=== PATIENT | female | born 1945 | race Caucasian/White ===

== ENCOUNTER 2024-02-23 12:49 | Outpatient (CLI) | payer MEDICARE ==
[2024-02-23 14:19] LABS: #Basophils 0.03 10x3/uL (0.0-0.2); #Monocytes 0.64 10x3/uL (0.0-1.1); #Neutrophils 6.63 10x3/uL (1.5-8.4); %Basophils 0.3 % (0.0-2.0); %Eosinophils 1.1 % (0.0-6.0); %Monocytes 7.2 % (0.0-10.0); %Neutrophils 74.1 % (40.0-75.0); Hematocrit 42.9 % (34.9-44.5); Hemoglobin 14.7 g/dL (12.0-15.5); Mean Corpuscular HGB CONC 34.3 g/dL (32.0-36.0); Mean Corpuscular Hemoglobin 32.8 pg (27.0-33.0); Mean Corpuscular Volume 95.8 fL (81.6-98.3); Mean Platelet Volume 10.7 fL (7.4-10.4); Platelet Count 198 10x3/uL (150-450); RBC Distribution Width 13.1 % (11.5-14.5); Red Blood Cell (RBC) Count 4.48 10x6/uL (3.90-5.03)
[2024-02-23 14:32] LABS: Anion Gap 13 mmol/L (10-20); BUN (Urea Nitrogen) 21 mg/dL (9.8-20.1); Calc. Creatinine Clearance 0 mL/min (70-130); Calcium 9.8 mg/dL (7.8-10.44); Carbon Dioxide 26 mmol/L (23-31); Chloride 108 mmol/L (98-107); Estimated GFR 55; Glucose 95 mg/dL (83-110); Potassium 4.4 mmol/L (3.5-5.1); Sodium 143 mmol/L (136-145)
== END 2024-02-23 12:50 | disposition home or self-care (01) ==
LOC: LABBT 12:49
PROVIDERS: ATTEND Orthopaedic Surgery
DX: Z01.818 Encounter for other preprocedural examination (principal); M16.11 Unilateral primary osteoarthritis, right hip
CPT/HCPCS: 80048; 85025; 85610; 87081; 93005; 93010

== ENCOUNTER 2024-02-28 08:42 | Inpatient (IN) | payer MEDICARE ==
[2024-02-28] MEDS ORDERED: Tranexamic Acid 1,000 MG/10 ML VIAL ONE (10:17)
[2024-02-28] MEDS ORDERED: Vancomycin 1 GM/200 ML (FROZEN) BAG ONE (10:18)
[2024-02-28] MEDS ORDERED: Sodium Chloride 0.9% 100 ML ONE ×2 (10:18→12:26)
[2024-02-28] MEDS ORDERED: Lidocaine 1% MPF 2 ML VIAL ONE (10:42)
[2024-02-28] MEDS ORDERED: fentaNYL 50 mcg/mL 1 mL Vial ONE ×4 (11:01→15:22)
[2024-02-28] MEDS ORDERED: diphenhydrAMINE 50 MG/ML VIAL IM PRN (12:00)
[2024-02-28] MEDS ORDERED: diphenhydrAMINE 25 MG CAP PO PRN ×2 (12:00→15:00)
[2024-02-28] MEDS ORDERED: Bupivacaine 0.25% 10 ML VIAL EPIDURAL PRN (12:00)
[2024-02-28] MEDS ORDERED: Naloxone HCl 0.4 mg/ml Vial IV PRN (12:00)
[2024-02-28] MEDS ORDERED: Ondansetron PF 4 MG/2 ML Vial IVP PRN ×2 (12:00→15:00)
[2024-02-28] MEDS ORDERED: Promethazine HCl 25 MG/ML VIAL IM PRN ×2 (12:00→15:00)
[2024-02-28] MEDS ORDERED: diphenhydrAMINE 50 MG/ML VIAL IVP PRN (12:00)
[2024-02-28] MEDS ORDERED: Moisturizing Cream (Eucerin) 113 GM JAR TOP PRN (12:00)
[2024-02-28] MEDS ORDERED: traMADol HCl 50 MG TAB PO PRN (12:00)
[2024-02-28] MEDS ORDERED: Promethazine HCl 25 MG SUPP PR PRN (12:00)
[2024-02-28] MEDS ORDERED: Naloxone HCl 0.4 mg/ml Vial IVP PRN (12:00)
[2024-02-28] MEDS ORDERED: Zolpidem Tartrate 5 MG TAB PO PRN ×2 (12:00→15:00)
[2024-02-28] MEDS ORDERED: PROPOFOL 20 ML ONE (12:25)
[2024-02-28] MEDS ORDERED: SUGAMMADEX SODIUM 200 MG/2 ML VIAL ONE (12:25)
[2024-02-28] MEDS ORDERED: CEFAZOLIN 2 GM VIAL ONE (12:26)
[2024-02-28] MEDS ORDERED: Rocuronium Bromide 10 MG/ML (10ML VIAL) ONE (12:43)
[2024-02-28] MEDS ORDERED: PHENYLEPHRINE-NS 100 MCG/ML 10 ML SYRINGE ONE (12:55)
[2024-02-28] MEDS ORDERED: Lidocaine 1% PF 5 ML VIAL ONE ×2 (12:59→14:42)
[2024-02-28] MEDS ORDERED: Acetaminophen 325 MG TAB PO PRN (15:00)
[2024-02-28] MEDS ORDERED: Bupivacaine 0.25% HCL 30 ML VIAL ONE (15:43)
[2024-02-28] MEDS: HYDROcodone/Acetaminophen 5/325 mg Tablet PO PRN (19:21)
[2024-02-28] MEDS: Aspirin 81 mg Enteric Coated Tablet PO SCH (21:25)
[2024-02-28] MEDS: CEFAZOLIN 2 GM in Sodium Chloride 0.9% 100 ML IVPB SCH (21:25)
[2024-02-28] MEDS: Ferrous Gluconate 324 MG TAB PO SCH (21:25)
[2024-02-28] MEDS: Senokot S 8.6-50 MG TAB PO SCH (21:25)
[2024-02-29] MEDS: FENTANYL 500 MCG/10 ML VIAL 500 MCG, Bupivacaine 0.75% 10 ML in Sodium Chloride 0.9% 80 ML EPIDURAL SCH (05:19)
[2024-02-29 06:15] LABS: Hematocrit 37.2 % (36.0-47.0); Hemoglobin 12.3 g/dL (12.0-16.0); Mean Corpuscular HGB CONC 33.1 g/dL (32.0-36.0); Mean Corpuscular Hemoglobin 31.9 pg (27.0-31.0); Mean Corpuscular Volume 96.4 fL (78.0-98.0); Mean Platelet Volume 10.8 fL (7.4-10.4); Platelet Count 152 10x3/uL (130-400); RBC Distribution Width 13.3 % (11.5-14.5); Red Blood Cell (RBC) Count 3.86 mill/uL (4.20-5.40)
[2024-02-29] MEDS: Multivitamin W/ Minerals 1 TAB PO SCH (07:51)
[2024-02-29] MEDS: HYDROcodone/Acetaminophen 5/325 mg Tablet PO PRN (09:39)
[2024-02-29] MEDS: traMADol HCl 50 MG TAB PO PRN (11:56)
[2024-02-29] MEDS: HYDROcodone/Acetaminophen 7.5/325 mg Tablet PO PRN (14:45)
[2024-03-01 07:02] LABS: Hematocrit 39.8 % (36.0-47.0); Mean Corpuscular HGB CONC 32.7 g/dL (32.0-36.0); Mean Corpuscular Hemoglobin 31.6 pg (27.0-31.0); Mean Corpuscular Volume 96.6 fL (78.0-98.0); Mean Platelet Volume 10.5 fL (7.4-10.4); Platelet Count 140 10x3/uL (130-400); RBC Distribution Width 13.4 % (11.5-14.5); Red Blood Cell (RBC) Count 4.12 mill/uL (4.20-5.40)
[2024-03-01] MEDS: HYDROcodone/Acetaminophen 7.5/325 mg Tablet PO PRN (09:45)
[2024-03-01 21:12] VITALS: BMI 341300.7
[2024-03-02 07:59] LABS: Hemoglobin 11.7 g/dL (12.0-16.0); Mean Corpuscular HGB CONC 32.5 g/dL (32.0-36.0); Mean Corpuscular Hemoglobin 32.3 pg (27.0-31.0); Mean Corpuscular Volume 99.4 fL (78.0-98.0); Mean Platelet Volume 11.2 fL (7.4-10.4); Platelet Count 119 10x3/uL (130-400); RBC Distribution Width 13.3 % (11.5-14.5); Red Blood Cell (RBC) Count 3.62 mill/uL (4.20-5.40)
[2024-03-03 06:17] LABS: Hematocrit 33.6 % (36.0-47.0); Mean Corpuscular HGB CONC 32.7 g/dL (32.0-36.0); Mean Corpuscular Hemoglobin 32.1 pg (27.0-31.0); Mean Platelet Volume 10.2 fL (7.4-10.4); Platelet Count 151 10x3/uL (130-400); RBC Distribution Width 13.4 % (11.5-14.5); Red Blood Cell (RBC) Count 3.43 mill/uL (4.20-5.40)
[2024-03-05] MEDS: methylPREDNISolone Sod Succ/PF 125 MG/2 ML VIAL IVP SCH (09:20)
[2024-03-05] MEDS ORDERED: Loperamide HCl 2 MG CAP PO PRN (11:07)
[2024-03-05] MEDS: Loperamide HCl 2 MG CAP PO SCH (11:11)
[2024-03-05 11:57] VITALS: BP 153/84; TEMP 98.3
== END 2024-03-05 11:42 | disposition home or self-care (01) | DRG 470 ==
LOC: SDC 08:42 → SURG B 17:20 → OBSVTOIN 03-01 18:12
PROVIDERS: ADMIT Orthopaedic Surgery; ATTEND Orthopaedic Surgery
PROC: 0SR90JZ Replacement of Right Hip Joint with Synthetic Substitute, Open Approach (ICD-10-PCS; principal; 2024-02-28)
DX: M16.11 Unilateral primary osteoarthritis, right hip (principal); J44.9 Chronic obstructive pulmonary disease, unspecified; E78.5 Hyperlipidemia, unspecified; I10 Essential (primary) hypertension; M81.0 Age-related osteoporosis without current pathological fracture; K21.9 Gastro-esophageal reflux disease without esophagitis; Z96.653 Presence of artificial knee joint, bilateral; Z90.710 Acquired absence of both cervix and uterus; Z79.899 Other long term (current) drug therapy; Z88.1 Allergy status to other antibiotic agents; Z88.6 Allergy status to analgesic agent; Z90.49 Acquired absence of other specified parts of digestive tract; Z88.8 Allergy status to other drugs, medicaments and biological substances
CPT/HCPCS: 36415; 72170; 85027; 96365; 96375; 96376; C1713; C1776; G0378; G0379; J0665; J2704; J2930; J3010; J3370-JW; J3490

== ENCOUNTER 2025-04-06 12:28 | Inpatient (IN) | payer MEDICARE, OTHER ==
[~2025-04-06 12:28] MED LIST: Iopamidol 370 76% 100 ML VIAL ONE
[2025-04-06] MEDS ORDERED: Albuterol 2.5 MG (3 mL) NEB ONE (12:58)
[2025-04-06 13:04] LABS: #Basophils 0.06 10x3/uL (0.0-0.2); #Eosinophils 0.51 10x3/uL (0.0-0.7); #Monocytes 0.65 10x3/uL (0.11-0.59); #Neutrophils 6.43 10x3/uL (1.40-6.50); %Basophils 0.6 % (0.0-1.0); %Eosinophils 5.5 % (0.0-10.0); %Lymphocytes 17.0 % (21.0-51.0); %Monocytes 7.0 % (0.0-10.0); %Neutrophils 69.5 % (42.0-75.0); Hematocrit 44.3 % (36.0-47.0); Hemoglobin 14.2 g/dL (12.0-16.0); Mean Corpuscular Hemoglobin 31.3 pg (27.0-31.0); Mean Corpuscular Volume 97.6 fL (78.0-98.0); Platelet Count 176 10x3/uL (130-400); Red Blood Cell (RBC) Count 4.54 mill/uL (4.20-5.40); White Blood Cell (WBC) Count 9.26 10x3/uL (4.8-10.8)
[2025-04-06 13:09] LABS: Actual Bicarbonate (HCO3v) 29.5 mEq/L (22-28); Base Excess 1.0 mEq/L (-2.0 to +3.0); Calcium, Ionized (venous) 1.17 mmol/L (1.16-1.32); Chloride (VBG) 104 mmol/L (98-106); Hematocrit-VBG 45 % (36.0-47.0); Hemoglobin (Hb) 15.2 g/dL (11.7-16.1); Potassium (VBG) 4.26 mmol/L (3.70-5.30); Sodium 143 mmol/L (133-146)
[2025-04-06] MEDS ORDERED: Albuterol 2.5 MG (0.5 mL) NEB ONE (13:09)
[2025-04-06 13:34] LABS: ALT (SGPT) 26 U/L (Less than 34); AST (SGOT) 31 U/L (11-34); Albumin 4.3 g/dL (3.1-4.5); Alkaline Phosphatase 99 U/L (40-110); Anion Gap 13 mmol/L (10-20); BUN (Urea Nitrogen) 14 mg/dL (9.8-20.1); Bilirubin, Total 0.6 mg/dL (0.3-1.2); Calc. Creatinine Clearance 0 mL/min (70-130); Calcium 9.2 mg/dL (7.8-10.44); Carbon Dioxide 28 mmol/L (23-31); Chloride 106 mmol/L (98-107); Globulin 2.4 g/dL (2.4-3.5); Glucose 99 mg/dL (83-110); Potassium 4.2 mmol/L (3.5-5.1); Sodium 143 mmol/L (136-145)
[2025-04-06] MEDS: Enoxaparin 40 MG (0.4 mL) SYRINGE SC SCH (17:06)
[2025-04-06] MEDS: Azithromycin 250 MG TAB PO SCH (17:06)
[2025-04-06 18:36] LABS: Influenza A by NAA Not Detected (NotDetected); Influenza B by NAA Not Detected (NotDetected); SARS-CoV-2 NAA Rapid Test Not Detected (NotDetected)
[2025-04-06] MEDS ORDERED: Albuterol 200 PUFF (6.7GM INHALER) INH PRN (23:08)
[2025-04-06] MEDS ORDERED: Albuterol 200 PUFF INH INH PRN (23:27)
[2025-04-06] MEDS: Benzonatate 100 MG CAP PO PRN (23:53)
[2025-04-07 04:45] LABS: #Basophils Less than 0.03 10x3/uL (0.0-0.2); #Eosinophils Less than 0.03 10x3/uL (0.0-0.7); #Monocytes 0.14 10x3/uL (0.11-0.59); #Neutrophils 8.96 10x3/uL (1.40-6.50); %Basophils 0.1 % (0.0-1.0); %Eosinophils 0.0 % (0.0-10.0); %Lymphocytes 7.3 % (21.0-51.0); %Monocytes 1.4 % (0.0-10.0); %Neutrophils 90.6 % (42.0-75.0); Hematocrit 39.7 % (36.0-47.0); Hemoglobin 12.8 g/dL (12.0-16.0); Mean Corpuscular Hemoglobin 31.0 pg (27.0-31.0); Mean Corpuscular Volume 96.1 fL (78.0-98.0); Platelet Count 163 10x3/uL (130-400); Red Blood Cell (RBC) Count 4.13 mill/uL (4.20-5.40); White Blood Cell (WBC) Count 9.89 10x3/uL (4.8-10.8)
[2025-04-07 05:16] LABS: ALT (SGPT) 20 U/L (Less than 34); AST (SGOT) 18 U/L (11-34); Albumin 3.5 g/dL (3.1-4.5); Alkaline Phosphatase 63 U/L (40-110); Anion Gap 15 mmol/L (10-20); BUN (Urea Nitrogen) 21 mg/dL (9.8-20.1); Bilirubin, Total 0.6 mg/dL (0.3-1.2); Calc. Creatinine Clearance 58 mL/min (70-130); Calcium 8.9 mg/dL (7.8-10.44); Carbon Dioxide 22 mmol/L (23-31); Chloride 108 mmol/L (98-107); Globulin 2.3 g/dL (2.4-3.5); Glucose 155 mg/dL (83-110); Potassium 4.2 mmol/L (3.5-5.1); Sodium 141 mmol/L (136-145)
[2025-04-07] MEDS: Atenolol 50 MG TAB PO SCH (09:21)
[2025-04-07] MEDS: Enoxaparin 40 MG (0.4 mL) SYRINGE SC SCH (09:21)
[2025-04-07] MEDS: Azithromycin 250 MG TAB PO SCH (09:21)
[2025-04-07] MEDS: Pantoprazole 40 MG DR.TAB PO SCH (09:21)
[2025-04-07] MEDS: predniSONE 20 MG TAB PO SCH (09:22)
[2025-04-07] MEDS: Guaifenesin DM 100-10/5 ML UDCUP PO PRN (16:59)
[2025-04-08] MEDS: Benzocaine/Menthol 1 LOZ LOZ PO PRN (03:33)
[2025-04-08] MEDS: Famotidine/PF 20 mg/2ml Vial SLOW IVP SCH (05:59)
[2025-04-08] MEDS: Famotidine 40 MG (4 mL) VIAL SLOW IVP SCH (05:59)
[2025-04-08] MEDS ORDERED: hydrALAZINE 20 MG/ML VIAL SLOW IVP PRN (09:01)
[2025-04-08 09:11] LABS: #Basophils 0.03 10x3/uL (0.0-0.2); #Eosinophils Less than 0.03 10x3/uL (0.0-0.7); #Monocytes 1.43 10x3/uL (0.11-0.59); #Neutrophils 19.70 10x3/uL (1.40-6.50); %Basophils 0.1 % (0.0-1.0); %Eosinophils 0.0 % (0.0-10.0); %Lymphocytes 5.3 % (21.0-51.0); %Monocytes 6.4 % (0.0-10.0); %Neutrophils 87.7 % (42.0-75.0); Hematocrit 44.3 % (36.0-47.0); Hemoglobin 14.0 g/dL (12.0-16.0); Mean Corpuscular Hemoglobin 30.9 pg (27.0-31.0); Mean Corpuscular Volume 97.8 fL (78.0-98.0); Platelet Count 183 10x3/uL (130-400); Red Blood Cell (RBC) Count 4.53 mill/uL (4.20-5.40); White Blood Cell (WBC) Count 22.47 10x3/uL (4.8-10.8)
[2025-04-08 09:33] LABS: ALT (SGPT) 22 U/L (Less than 34); AST (SGOT) 31 U/L (11-34); Albumin 3.7 g/dL (3.1-4.5); Alkaline Phosphatase 67 U/L (40-110); Anion Gap 16 mmol/L (10-20); BUN (Urea Nitrogen) 30 mg/dL (9.8-20.1); Bilirubin, Total 0.7 mg/dL (0.3-1.2); Calc. Creatinine Clearance 55 mL/min (70-130); Calcium 9.5 mg/dL (7.8-10.44); Carbon Dioxide 25 mmol/L (23-31); Chloride 107 mmol/L (98-107); Globulin 2.4 g/dL (2.4-3.5); Glucose 129 mg/dL (83-110); Potassium 4.2 mmol/L (3.5-5.1); Sodium 144 mmol/L (136-145)
[2025-04-09 05:31] LABS: #Basophils Less than 0.03 10x3/uL (0.0-0.2); #Eosinophils Less than 0.03 10x3/uL (0.0-0.7); #Monocytes 1.32 10x3/uL (0.11-0.59); #Neutrophils 12.94 10x3/uL (1.40-6.50); %Basophils 0.1 % (0.0-1.0); %Eosinophils 0.1 % (0.0-10.0); %Lymphocytes 8.2 % (21.0-51.0); %Monocytes 8.5 % (0.0-10.0); %Neutrophils 82.7 % (42.0-75.0); Hematocrit 42.0 % (36.0-47.0); Hemoglobin 13.2 g/dL (12.0-16.0); Mean Corpuscular Hemoglobin 30.5 pg (27.0-31.0); Mean Corpuscular Volume 97.0 fL (78.0-98.0); Platelet Count 168 10x3/uL (130-400); Red Blood Cell (RBC) Count 4.33 mill/uL (4.20-5.40); White Blood Cell (WBC) Count 15.62 10x3/uL (4.8-10.8)
[2025-04-09 06:10] LABS: ALT (SGPT) 20 U/L (Less than 34); AST (SGOT) 28 U/L (11-34); Albumin 3.5 g/dL (3.1-4.5); Alkaline Phosphatase 60 U/L (40-110); Anion Gap 13 mmol/L (10-20); BUN (Urea Nitrogen) 27 mg/dL (9.8-20.1); Bilirubin, Total 0.7 mg/dL (0.3-1.2); Calc. Creatinine Clearance 57 mL/min (70-130); Calcium 8.7 mg/dL (7.8-10.44); Carbon Dioxide 26 mmol/L (23-31); Chloride 108 mmol/L (98-107); Globulin 2.2 g/dL (2.4-3.5); Glucose 96 mg/dL (83-110); Potassium 4.4 mmol/L (3.5-5.1); Sodium 143 mmol/L (136-145)
[2025-04-09] MEDS: Mometasone 200 MCG/Formoterol 5 MCG 120 PUFF INHALER INH SCH (19:09)
[2025-04-10 06:26] LABS: #Basophils Less than 0.03 10x3/uL (0.0-0.2); #Eosinophils Less than 0.03 10x3/uL (0.0-0.7); #Monocytes 1.17 10x3/uL (0.11-0.59); #Neutrophils 9.34 10x3/uL (1.40-6.50); %Basophils 0.2 % (0.0-1.0); %Eosinophils 0.1 % (0.0-10.0); %Lymphocytes 11.9 % (21.0-51.0); %Monocytes 9.7 % (0.0-10.0); %Neutrophils 77.5 % (42.0-75.0); Hematocrit 41.6 % (36.0-47.0); Hemoglobin 13.3 g/dL (12.0-16.0); Mean Corpuscular Hemoglobin 30.9 pg (27.0-31.0); Mean Corpuscular Volume 96.7 fL (78.0-98.0); Platelet Count 146 10x3/uL (130-400); Red Blood Cell (RBC) Count 4.30 mill/uL (4.20-5.40); White Blood Cell (WBC) Count 12.04 10x3/uL (4.8-10.8)
[2025-04-10 06:43] LABS: ALT (SGPT) 21 U/L (Less than 34); AST (SGOT) 22 U/L (11-34); Albumin 3.3 g/dL (3.1-4.5); Alkaline Phosphatase 59 U/L (40-110); Anion Gap 14 mmol/L (10-20); BUN (Urea Nitrogen) 24 mg/dL (9.8-20.1); Bilirubin, Total 1.0 mg/dL (0.3-1.2); Calc. Creatinine Clearance 56 mL/min (70-130); Calcium 8.8 mg/dL (7.8-10.44); Carbon Dioxide 29 mmol/L (23-31); Chloride 106 mmol/L (98-107); Globulin 2.2 g/dL (2.4-3.5); Glucose 93 mg/dL (83-110); Potassium 4.1 mmol/L (3.5-5.1); Sodium 145 mmol/L (136-145)
[2025-04-10] MEDS: Acetaminophen 325 MG TAB PO PRN (10:34)
[2025-04-11 10:12] LABS: #Basophils Less than 0.03 10x3/uL (0.0-0.2); #Eosinophils 0.04 10x3/uL (0.0-0.7); #Monocytes 1.05 10x3/uL (0.11-0.59); #Neutrophils 9.43 10x3/uL (1.40-6.50); %Basophils 0.2 % (0.0-1.0); %Eosinophils 0.3 % (0.0-10.0); %Lymphocytes 11.8 % (21.0-51.0); %Monocytes 8.7 % (0.0-10.0); %Neutrophils 78.2 % (42.0-75.0); Hematocrit 44.1 % (36.0-47.0); Hemoglobin 13.8 g/dL (12.0-16.0); Mean Corpuscular Hemoglobin 30.2 pg (27.0-31.0); Mean Corpuscular Volume 96.5 fL (78.0-98.0); Platelet Count 172 10x3/uL (130-400); Red Blood Cell (RBC) Count 4.57 mill/uL (4.20-5.40); White Blood Cell (WBC) Count 12.07 10x3/uL (4.8-10.8)
[2025-04-11 10:31] LABS: ALT (SGPT) 35 U/L (Less than 34); AST (SGOT) 33 U/L (11-34); Albumin 3.5 g/dL (3.1-4.5); Alkaline Phosphatase 72 U/L (40-110); Anion Gap 11 mmol/L (10-20); BUN (Urea Nitrogen) 27 mg/dL (9.8-20.1); Bilirubin, Total 1.1 mg/dL (0.3-1.2); Calc. Creatinine Clearance 58 mL/min (70-130); Calcium 9.1 mg/dL (7.8-10.44); Carbon Dioxide 27 mmol/L (23-31); Chloride 110 mmol/L (98-107); Globulin 2.5 g/dL (2.4-3.5); Glucose 108 mg/dL (83-110); Potassium 4.2 mmol/L (3.5-5.1); Sodium 144 mmol/L (136-145)
[2025-04-11 15:37] VITALS: BP 143/74; TEMP 98.6
== END 2025-04-11 17:35 | disposition home health service (06) | DRG 189 ==
LOC: ERS 12:28 → OBS 14:34 → OBSVTOIN 04-07 12:30 → OBS 04-11 10:22
PROVIDERS: ADMIT Family Medicine; ATTEND Family Medicine
DX: J96.01 Acute respiratory failure with hypoxia (principal); J45.901 Unspecified asthma with (acute) exacerbation; E78.5 Hyperlipidemia, unspecified; E78.00 Pure hypercholesterolemia, unspecified; E78.1 Pure hyperglyceridemia; Z96.653 Presence of artificial knee joint, bilateral; N18.31 Chronic kidney disease, stage 3a; J30.9 Allergic rhinitis, unspecified; M19.90 Unspecified osteoarthritis, unspecified site; F41.9 Anxiety disorder, unspecified; N39.46 Mixed incontinence; Z96.612 Presence of left artificial shoulder joint; I12.9 Hypertensive chronic kidney disease with stage 1 through stage 4 chronic kidney disease, or unspecified chronic kidney disease; K21.9 Gastro-esophageal reflux disease without esophagitis; Z98.890 Other specified postprocedural states; Z90.710 Acquired absence of both cervix and uterus; Z88.8 Allergy status to other drugs, medicaments and biological substances; Z88.1 Allergy status to other antibiotic agents; Z90.49 Acquired absence of other specified parts of digestive tract
CPT/HCPCS: 36415; 71045; 71275; 74230; 80053; 82805; 83605; 83880; 85025; 87040; 87633; 87636; 94640; 94760; J1308; J1650; J7512; J7611; J7620; J7626; Q9967

== ENCOUNTER 2025-05-03 13:39 | Inpatient (IN) | payer OTHER ==
[2025-05-03 16:39] VITALS: BMI 37.0
[2025-05-03] MEDS: Enoxaparin 40 MG (0.4 mL) SYRINGE SC SCH (18:22)
[2025-05-03] MEDS: Mometasone 100 MCG/Formoterol 5 MCG 120 PUFF INHALER INH SCH (19:06)
[2025-05-04 06:43] LABS: #Basophils Less than 0.03 10x3/uL (0.0-0.2); #Eosinophils Less than 0.03 10x3/uL (0.0-0.7); #Monocytes 0.87 10x3/uL (0.11-0.59); #Neutrophils 14.13 10x3/uL (1.40-6.50); %Basophils 0.1 % (0.0-1.0); %Eosinophils 0.0 % (0.0-10.0); %Lymphocytes 4.1 % (21.0-51.0); %Monocytes 5.5 % (0.0-10.0); %Neutrophils 89.9 % (42.0-75.0); Hematocrit 38.9 % (36.0-47.0); Hemoglobin 12.8 g/dL (12.0-16.0); Mean Corpuscular Hemoglobin 31.4 pg (27.0-31.0); Mean Corpuscular Volume 95.6 fL (78.0-98.0); Platelet Count 184 10x3/uL (130-400); Red Blood Cell (RBC) Count 4.07 mill/uL (4.20-5.40); White Blood Cell (WBC) Count 15.72 10x3/uL (4.8-10.8)
[2025-05-04 07:03] LABS: ALT (SGPT) 23 U/L (Less than 34); AST (SGOT) 19 U/L (11-34); Albumin 3.4 g/dL (3.1-4.5); Alkaline Phosphatase 56 U/L (40-110); Anion Gap 13 mmol/L (10-20); BUN (Urea Nitrogen) 19 mg/dL (9.8-20.1); Bilirubin, Total 0.4 mg/dL (0.3-1.2); Calc. Creatinine Clearance 59 mL/min (70-130); Calcium 8.8 mg/dL (7.8-10.44); Carbon Dioxide 25 mmol/L (23-31); Chloride 108 mmol/L (98-107); Globulin 2.1 g/dL (2.4-3.5); Glucose 137 mg/dL (83-110); Potassium 3.9 mmol/L (3.5-5.1); Sodium 142 mmol/L (136-145)
[2025-05-04] MEDS: predniSONE 20 MG TAB PO SCH (09:15)
[2025-05-04] MEDS: Pantoprazole 40 MG DR.TAB PO SCH (09:15)
[2025-05-04] MEDS: Azithromycin 250 MG TAB PO SCH (09:16)
[2025-05-04] MEDS: Cholecalciferol 1,000 UNITS (25 MCG) TAB PO SCH (09:16)
[2025-05-04] MEDS: Enoxaparin 40 MG (0.4 mL) SYRINGE SC SCH (10:41)
[2025-05-04] MEDS: Benzonatate 100 MG CAP PO PRN (16:10)
[2025-05-05 05:56] LABS: #Basophils Less than 0.03 10x3/uL (0.0-0.2); #Eosinophils Less than 0.03 10x3/uL (0.0-0.7); #Monocytes 0.90 10x3/uL (0.11-0.59); #Neutrophils 11.55 10x3/uL (1.40-6.50); %Basophils 0.1 % (0.0-1.0); %Eosinophils 0.0 % (0.0-10.0); %Lymphocytes 6.1 % (21.0-51.0); %Monocytes 6.7 % (0.0-10.0); %Neutrophils 86.5 % (42.0-75.0); Hematocrit 38.5 % (36.0-47.0); Hemoglobin 12.3 g/dL (12.0-16.0); Mean Corpuscular Hemoglobin 31.2 pg (27.0-31.0); Mean Corpuscular Volume 97.7 fL (78.0-98.0); Platelet Count 174 10x3/uL (130-400); Red Blood Cell (RBC) Count 3.94 mill/uL (4.20-5.40); White Blood Cell (WBC) Count 13.36 10x3/uL (4.8-10.8)
[2025-05-05 06:33] LABS: ALT (SGPT) 20 U/L (Less than 34); AST (SGOT) 17 U/L (11-34); Albumin 3.2 g/dL (3.1-4.5); Alkaline Phosphatase 52 U/L (40-110); Anion Gap 11 mmol/L (10-20); BUN (Urea Nitrogen) 25 mg/dL (9.8-20.1); Bilirubin, Total 0.4 mg/dL (0.3-1.2); Calc. Creatinine Clearance 52 mL/min (70-130); Calcium 8.4 mg/dL (7.8-10.44); Carbon Dioxide 27 mmol/L (23-31); Chloride 109 mmol/L (98-107); Globulin 1.9 g/dL (2.4-3.5); Glucose 113 mg/dL (83-110); Potassium 4.0 mmol/L (3.5-5.1); Sodium 143 mmol/L (136-145)
[2025-05-05] MEDS: Enoxaparin 40 MG (0.4 mL) SYRINGE SC SCH (08:11)
[2025-05-06] MEDS: Acetaminophen 325 MG TAB PO PRN (01:34)
[2025-05-06 06:16] LABS: #Basophils Less than 0.03 10x3/uL (0.0-0.2); #Eosinophils Less than 0.03 10x3/uL (0.0-0.7); #Monocytes 1.05 10x3/uL (0.11-0.59); #Neutrophils 8.73 10x3/uL (1.40-6.50); %Basophils 0.2 % (0.0-1.0); %Eosinophils 0.1 % (0.0-10.0); %Lymphocytes 11.6 % (21.0-51.0); %Monocytes 9.3 % (0.0-10.0); %Neutrophils 77.4 % (42.0-75.0); Hematocrit 42.3 % (36.0-47.0); Hemoglobin 13.7 g/dL (12.0-16.0); Mean Corpuscular Hemoglobin 31.0 pg (27.0-31.0); Mean Corpuscular Volume 95.7 fL (78.0-98.0); Platelet Count 184 10x3/uL (130-400); Red Blood Cell (RBC) Count 4.42 mill/uL (4.20-5.40); White Blood Cell (WBC) Count 11.28 10x3/uL (4.8-10.8)
[2025-05-06 06:39] LABS: ALT (SGPT) 22 U/L (Less than 34); AST (SGOT) 22 U/L (11-34); Albumin 3.2 g/dL (3.1-4.5); Alkaline Phosphatase 56 U/L (40-110); Anion Gap 12 mmol/L (10-20); BUN (Urea Nitrogen) 22 mg/dL (9.8-20.1); Bilirubin, Total 0.7 mg/dL (0.3-1.2); Calc. Creatinine Clearance 64 mL/min (70-130); Calcium 8.6 mg/dL (7.8-10.44); Carbon Dioxide 26 mmol/L (23-31); Chloride 108 mmol/L (98-107); Globulin 2.1 g/dL (2.4-3.5); Glucose 88 mg/dL (83-110); Potassium 4.1 mmol/L (3.5-5.1); Sodium 142 mmol/L (136-145)
[2025-05-07 05:49] LABS: #Basophils 0.03 10x3/uL (0.0-0.2); #Eosinophils 0.03 10x3/uL (0.0-0.7); #Monocytes 0.79 10x3/uL (0.11-0.59); #Neutrophils 6.71 10x3/uL (1.40-6.50); %Basophils 0.3 % (0.0-1.0); %Eosinophils 0.3 % (0.0-10.0); %Lymphocytes 18.0 % (21.0-51.0); %Monocytes 8.4 % (0.0-10.0); %Neutrophils 71.3 % (42.0-75.0); Hematocrit 42.3 % (36.0-47.0); Hemoglobin 13.8 g/dL (12.0-16.0); Mean Corpuscular Hemoglobin 31.2 pg (27.0-31.0); Mean Corpuscular Volume 95.5 fL (78.0-98.0); Platelet Count 171 10x3/uL (130-400); Red Blood Cell (RBC) Count 4.43 mill/uL (4.20-5.40); White Blood Cell (WBC) Count 9.42 10x3/uL (4.8-10.8)
[2025-05-07 06:12] LABS: ALT (SGPT) 21 U/L (Less than 34); AST (SGOT) 18 U/L (11-34); Albumin 3.1 g/dL (3.1-4.5); Alkaline Phosphatase 54 U/L (40-110); Anion Gap 13 mmol/L (10-20); BUN (Urea Nitrogen) 23 mg/dL (9.8-20.1); Bilirubin, Total 0.7 mg/dL (0.3-1.2); Calc. Creatinine Clearance 67 mL/min (70-130); Calcium 8.4 mg/dL (7.8-10.44); Carbon Dioxide 23 mmol/L (23-31); Chloride 107 mmol/L (98-107); Globulin 2.1 g/dL (2.4-3.5); Glucose 81 mg/dL (83-110); Potassium 3.9 mmol/L (3.5-5.1); Sodium 139 mmol/L (136-145)
[2025-05-07 11:43] VITALS: BP 120/76; TEMP 98
== END 2025-05-07 16:20 | disposition home health service (06) | DRG 189 ==
LOC: OBSVTOIN 15:35 → UNDOADMIN 15:35 → T4-A 15:35 → INTOOBSV 15:35 → T4-A 05-04 17:48
PROVIDERS: ADMIT Family Medicine; ATTEND Family Medicine
DX: J96.01 Acute respiratory failure with hypoxia (principal); J45.901 Unspecified asthma with (acute) exacerbation; J44.1 Chronic obstructive pulmonary disease with (acute) exacerbation; I10 Essential (primary) hypertension; E78.5 Hyperlipidemia, unspecified; K21.9 Gastro-esophageal reflux disease without esophagitis; Z79.899 Other long term (current) drug therapy; Z96.611 Presence of right artificial shoulder joint; Z96.612 Presence of left artificial shoulder joint; Z96.653 Presence of artificial knee joint, bilateral; Z90.710 Acquired absence of both cervix and uterus; Z88.0 Allergy status to penicillin; Z88.6 Allergy status to analgesic agent; Z87.11 Personal history of peptic ulcer disease; Z77.22 Contact with and (suspected) exposure to environmental tobacco smoke (acute) (chronic); D72.829 Elevated white blood cell count, unspecified
CPT/HCPCS: 36415; 71045; 80048; 80053; 83605; 83735; 83880; 84484; 85025; 87040; 93005; 94640; 94664; 94762; 96365; 96372; 96375; 96376; G0378; J0696; J1650; J2919; J3475; J7512